=== PATIENT | male | born 1980 | race Caucasian/White ===

== ENCOUNTER 2016-08-08 06:47 | Emergency (ER) | payer MEDICARE | END 2016-08-08 07:36 | disposition home or self-care (01) | LOC: CED 06:47 | DX: T25.232A Burn of second degree of left toe(s) (nail), initial encounter (principal); T31.0 Burns involving less than 10% of body surface; F17.210 Nicotine dependence, cigarettes, uncomplicated; X08.8XXA Exposure to other specified smoke, fire and flames, initial encounter | CPT/HCPCS: 99283 ==

== ENCOUNTER 2016-08-08 23:35 | Emergency (ER) | payer MEDICARE, OTHER | END 2016-08-09 00:08 | disposition left against medical advice (07) | LOC: CED 23:35 | DX: Z53.21 Procedure and treatment not carried out due to patient leaving prior to being seen by health care provider (principal) ==

== ENCOUNTER 2016-08-23 02:30 | Emergency (ER) | payer MEDICARE | END 2016-08-23 05:40 | disposition home or self-care (01) | LOC: CED 02:30 | DX: T40.1X1A Poisoning by heroin, accidental (unintentional), initial encounter (principal); F17.200 Nicotine dependence, unspecified, uncomplicated | CPT/HCPCS: 99283 ==

== ENCOUNTER 2016-12-22 11:14 | Emergency (ER) | payer MEDICARE | END 2016-12-22 11:19 | disposition left against medical advice (07) | LOC: CED 11:14 | DX: Z53.21 Procedure and treatment not carried out due to patient leaving prior to being seen by health care provider (principal) ==

== ENCOUNTER 2016-12-26 19:02 | Emergency (ER) | payer MEDICARE | END 2016-12-26 21:40 | disposition home or self-care (01) | LOC: CED 19:02 | DX: T39.1X1A Poisoning by 4-Aminophenol derivatives, accidental (unintentional), initial encounter (principal); F41.9 Anxiety disorder, unspecified; F17.200 Nicotine dependence, unspecified, uncomplicated; Z88.5 Allergy status to narcotic agent | CPT/HCPCS: 99284 ==